=== PATIENT | male | born 1985 | race Caucasian/White ===

== ENCOUNTER 2018-05-09 19:57 | Inpatient (IN) | payer OTHER ==
[~2018-05-09] VITALS: Ht 170.2 cm; Wt 77.4 kg
[2018-05-10] VITALS (20 sets, daily range): BP systolic 98–161; BP diastolic 65–91; PULSE 54–86; RESP 12–24; Ht 170.2 cm; Wt 77.4 kg
[2018-05-10] MEDS ORDERED: ONDANSETRON 4 MG INJ IV STA (01:29)
[2018-05-10] MEDS ORDERED: SOD CHLORIDE 0.9% 1,000 ML IV ONE (01:30)
[2018-05-10] MEDS ORDERED: IOHEXOL 300MG/ML 150 ML BTL ONE (02:22)
[2018-05-10] MEDS ORDERED: SOD CHLORIDE 0.9% 100 ML ONE (02:22)
--- NOTE | 2018-05-10 03:36 | ERD ---
ER Documentation Chief Complaint Chief Complaint lower abdominal pain x 1 day HPI 32 year-old [male] coming in today with Chief Complaint: Abdominal pain History of Present Illness: Reporting waking up with mild abdominal pain that has has been progressive. Associated symptoms include nausea, decreased appetite, fatigue. Denies sick contacts. Review of systems: All systems were reviewed and are negative except for what is indicated in the history of present illness. Past Medical History: Hypothyroid Social History: [Patient denies tobacco, alcohol, elicit drug use] Medications: [Reviewed as documented Nursing Notes] Allergies: [Reviewed as documented in Nursing Notes] Social Concerns: Denies ROS All systems reviewed and are negative except as per history of present illness. Allergies Allergies: Coded Allergies: No Known Drug Allergies (Verified Allergy, Unknown, 05/09/18) PMhx/Soc History of Surgery: No Anesthesia Reaction: No Hx Neurological Disorder: No Hx Respiratory Disorders: No Hx Cardiac Disorders: No Hx Psychiatric Problems: No Hx Miscellaneous Medical Probl: Yes (HYPOTHYROIDSIM) Hx Alcohol Use: No Hx Substance Use: No Hx Tobacco Use: No Smoking Status: Never smoker FmHx Family History: No diabetes, No coronary disease Physical Exam Vitals Vital Signs Date Temp Pulse Resp B/P (MAP) Pulse Ox O2 O2 Flow FiO2 Time Delivery Rate 05/10/18 98.3 73 18 124/77 98 Room Air 04:29 (93) 05/09/18 98.3 79 18 143/73 98 20:00 (96) Physical Exam Const: No acute distress Head: Atraumatic Eyes: Normal Conjunctiva ENT: Normal External Ears, Nose and Mouth. Neck: Full range of motion. No meningismus. Resp: Clear to auscultation bilaterally Cardio: Regular rate and rhythm, no murmurs Abd: Soft, non distended. Normal bowel sounds. Tenderness to right lower quadrant. Skin: No petechiae or rashes Back: No midline or flank tenderness Ext: No cyanosis, or edema Neur: Awake and alert Psych: Normal Mood and Affect Result Diagram: 05/09/18225305/09/182253 Results 24 hrs Laboratory Tests Test 05/09/18 22:54 White Blood Count 8.6 10^3/ul Red Blood Count 5.35 10^6/ul Hemoglobin 17.1 g/dl Hematocrit 49.2 % Mean Corpuscular Volume 92.0 fl Mean Corpuscular Hemoglobin 32.0 pg Mean Corpuscular Hemoglobin Concent 34.8 g/dl Red Cell Distribution Width 11.8 % Platelet Count 209 10^3/UL Mean Platelet Volume 10.7 fl Immature Granulocytes % 0.500 % Neutrophils % 74.1 % Lymphocytes % 15.4 % Monocytes % 8.8 % Eosinophils % 0.8 % Basophils % 0.4 % Nucleated Red Blood Cells % 0.0 /100WBC Immature Granulocytes # 0.040 10^3/ul Neutrophils # 6.4 10^3/ul Lymphocytes # 1.3 10^3/ul Monocytes # 0.8 10^3/ul Eosinophils # 0.1 10^3/ul Basophils # 0.0 10^3/ul Nucleated Red Blood Cells # 0.0 10^3/ul Urine Color YELLOW Urine Clarity SLIGHTLY CLOUDY Urine pH 6.0 Urine Specific [place] 1.015 Urine Ketones NEGATIVE mg/dL Urine Nitrite NEGATIVE mg/dL Urine Bilirubin NEGATIVE mg/dL Urine Urobilinogen NEGATIVE mg/dL Urine Leukocyte Esterase NEGATIVE Lizy/ul Urine Microscopic RBC 1 /HPF Urine Microscopic WBC 1 /HPF Urine Amorphous Crystals FEW /HPF Urine Mucus FEW /HPF Urine Hemoglobin NEGATIVE mg/dL Urine Glucose NEGATIVE mg/dL Urine Total Protein NEGATIVE mg/dl Sodium Level 140 mmol/L Potassium Level 4.1 mmol/L Chloride Level 99 mmol/L Carbon Dioxide Level 29 mmol/L Anion Gap 12 Blood Urea Nitrogen 7 mg/dl Creatinine 0.85 mg/dl Est Glomerular Filtrat Rate mL/min > 60 mL/min Glucose Level 103 mg/dl Calcium Level 10.2 mg/dl Total Bilirubin 0.8 mg/dl Direct Bilirubin 0.00 mg/dl Indirect Bilirubin 0.8 mg/dl Aspartate Amino Transf (AST/SGOT) 29 IU/L Alanine Aminotransferase (ALT/SGPT) 42 IU/L Alkaline Phosphatase 89 IU/L Total Protein 8.5 g/dl Albumin 4.9 g/dl Globulin 3.60 g/dl Albumin/Globulin Ratio 1.36 Lipase 60 U/L Current Medications Medications Dose Sig/[place] Start Time Status Last (Trade) Ordered Route PRN Stop Time Admin Dose Reason Admin Sodium 1,000 ml @ Q1H ONCE 05/10/18 DC 05/10/18 Chloride 1,000 mls/hr IV 01:30 02:09 05/10/18 02:29 Ondansetron 4 mg ONCE STAT 05/10/18 DC 05/10/18 HCl (Zofran IV 01:29 02:09 Inj) 05/10/18 01:36 Sodium 100 ml @ ud STK-MED 05/10/18 DC 05/10/18 Chloride ONCE .ROUTE 02:22 02:43 05/10/18 02:23 Iohexol 150 ml STK-MED 05/10/18 DC 05/10/18 (Omnipaque ONCE .ROUTE 02:22 02:41 300mg/ ml) 05/10/18 02:23 Piperacillin 100 ml @ ONCE ONCE 05/10/18 05/10/18 Sod/ 200 mls/hr IVPB 04:30 04:22 Tazobactam 05/10/18 04:59 Sod Ondansetron 4 mg BRIDGE ORDER 05/10/18 HCl (Zofran PRN IV 04:30 Inj) NAUSEA/VOMITI 05/11/18 04:29 NG 650 mg ER BRIDGE 05/10/18 Acetaminophen PRN PO 04:30 (Tylenol .MILD PAIN 05/11/18 04:29 Tab) 1-3 OR TEMP Procedures/MDM ED course includes a thorough examination and history. ED course includes labs; CBC, CMP, lipase, urinalysis. Course includes ultrasound to rule out appendicitis. Patient reassessment at 0130: patient updated on ultrasound findings, not able to visualize appendix. CBC, CMP, lipase within normal limits. Will start fl uids on patient and order CT abdomen pelvis with contrast. Will give IV zofran for nausea. Otherwise healthy patient presenting with constellation of symptoms representing sinusitis as characterized by history, physical exam findings [radiologic/lab findings]. CT abdomen showing: IMPRESSION: Findings suggestive of early, mild acute appendicitis. There is no associated abscess or free air. Results were called to the ER physician construction project assistant Miguel A at time of dictation 0325 hours, will be related to the ordering clinician Louise Escobar. No evidence of intestinal obstruction. Consultation with the ED MD at 03:25: Dr. Estrada updated on physical exam, history, labs, CT results showing acute appendicitis. Plans of care for admission and Zosyn. Reassessment at 0330: nausea no longer present. Updated patient on CT results. Patient states he wants to call his to talk to regarding CT results and admission. ----- No respiratory distress, otherwise relatively well appearing and nontoxic. Patient educated on plan of care. Patient agrees to admission. Will start IV Zosyn. Departure Diagnosis: Primary Impression: Appendicitis, acute Acute appendicitis type: unspecified acute appendicitis type Qualified Codes: K35.80 - Unspecified acute appendicitis JES ESCOBAR NP May 10, 2018 03:36
--- NOTE | 2018-05-10 04:29 | QN ---
Documentation Comment Consultation note Subjective: This patient was evaluated by me in conjunction with PA. Please see the PA note for further detail. Briefly, this is a 32-year-old male who is presenting with right lower quadrant abdominal pain, nausea and vomiting times 1 day. Family history: As indicated on the initial history and physical of this ER visit Objective: Vital signs reviewed Const: No apparent distress, well-developed, well-nourished Head: Normocephalic, Atraumatic Eyes: Normal Conjunctiva. ENT: Normal External Ears, Nose and Mouth. Neck: No meningismus. Resp: Symmetric chest wall cedeno, no audible wheezes Cardio: Regular rate and rhythm. Abd: Right lower quadrant abdominal tenderness. No guarding or rebound. Normal bowel sounds. Skin: No petechiae or rashes Ext: No cyanosis, or edema Neur: Awake and alert, oriented 4. No facial droop. Normal strength and sensation. Psych: Normal mood and affect Assessment: Early appendicitis MDM The patient's presentation warrants further investigation. Previous medical records, if available, were reviewed. LABS The patient's laboratory testing was obtained and reviewed. No emergent treatment was required unless described below. CBC: No E/o of systemic infection or severe anemia or thrombocytopenia Chemistry: No E/o severe acidosis or alkalosis or renal failure or liver disease or diabetic ketoacidosis Urine: No E/o acute infection or hematuria IMAGING Imaging and Radiology interpretation reviewed. US Abd FINDINGS: The appendix is not visualized within the right lower abdomen. No abnormal fluid collections or a discrete encapsulated mass are visualized within the right or left lower abdomen. IMPRESSION: No discrete abnormality visualized within the right or left lower abdomen. Non-visualized appendix. A follow-up CT abdomen/pelvis may be obtained for additional evaluation if clinically indicated. Electronically viewed and signed by .April Armendariz MD, on 05/10/2018 00:15 CT Abd/Pelvis IMPRESSION: Findings suggestive of early, mild acute appendicitis. There is no associated abscess or free air. Results were called to the ER physician land surveyor assistant Miguel A at time of dictation 0325 hours, will be related to the ordering clinician Louise Melgar. No evidence of intestinal obstruction. 1.5 cm right renal probable cyst. No urinary tract stone or secondary signs of urinary tract obstruction, nor asymmetric renal parenchymal striation is seen. Electronically viewed and signed by Physician Guerda on 05/10/2018 03:26 TREATMENT/DISPOSITION The patient presents with symptoms concerning for early appendicitis. The patient was given Zosyn, IV fluids and Zofran in the emergency department. The patient does not have any evidence of peritonitis. The patient does not have clinical symptoms concerning for mesenteric ischemia or ischemic colitis. The patient does not have right upper quadrant tenderness, and I have low suspicion for gallstones, cholecystitis or biliary colic. The patient does not have any epigastric pain. I have low suspicion for gastritis, PUD or GERD. The patient does not have left upper quadrant tenderness. I have low suspicion for pancreatitis. The patient does not have suprapubic tenderness. I have decreased suspicion for cystitis. The patient does not have any left lower quadrant tenderness, and I have low suspicion for diverticulosis or diverticulitis. The patient does not have any flank tenderness. The patient does not have gross hematuria. I have decreased suspicion for nephrolithiasis or renal colic. The patient does not have any palpable pulsatile mass or severe abdominal pain radiating to the back. I have low suspicion for aortic aneurysm, dissection or rupture. At this time, I feel that the patient requires admission for further evaluation and management. The patient will be admitted to panel in accordance with the patient's insurance. The patient was accepted by Dr. Velasquez at 4:20 AM on May 10, 2017 to [facility]. The on-call general surgeon will be consulted on the case. Disclaimer: Inadvertent spelling and grammatical errors are likely due to EHR/dictation software use and do not reflect on the overall quality of patient care. Note that the electronic time recorded on this note does not necessarily reflect the actual time of the patient encounter. NOLBERTO GASTELUM MD May 10, 2018 04:29
[2018-05-10] MEDS ORDERED: ACETAMINOPHEN 325 MG TAB PO PRN ×3 (04:30→21:30)
[2018-05-10] MEDS ORDERED: ONDANSETRON 4 MG INJ IV PRN ×3 (04:30→20:00)
[2018-05-10] MEDS ORDERED: PIPER-TAZO 3.375 GM IV (PMX) 100 ML IVPB ONE (04:30)
--- NOTE | 2018-05-10 04:33 | HP ---
Date/Time of Note Date/Time of Note DATE: 05/10/18 TIME: 04:32 Assessment/Plan VTE Prophylaxis SCD applied (from Nsg): Yes Pharmacological prophylaxis: NA/contraindicated Pharm contraindication: low risk/ambulating Lines/Catheters IV Catheter Type (from Nrsg): Saline Lock Assessment/Plan Hospital Course This is a 32-year-old male being admitted to the [facility] floor for: #1 suspect early appendicitis: Patient does have positive right lower quadrant tenderness. CT scan shows possible early appendicitis. At the current time we will keep the patient n.p.o., Zosyn IV. Pain management. IV fluid hydration with normal saline. General surgery Dr. Newsome has been consulted by the ED. we will check PTT/PT/INR. Will await further recommendations. #2 hypothyroidism: Check a TSH level, will need to confirm patient's home levothyroxine dosage and resume. #3 DVT GI prophylaxis: SCDs, no GI prophylaxis indicated Further treatment strategy will be implemented as per the clinical course Result Diagram: 05/09/18225305/09/182253 Results 24hrs Laboratory Tests Test 05/09/18 22:54 White Blood Count 8.6 Red Blood Count 5.35 Hemoglobin 17.1 Hematocrit 49.2 Mean Corpuscular Volume 92.0 Mean Corpuscular Hemoglobin 32.0 Mean Corpuscular Hemoglobin Concent 34.8 Red Cell Distribution Width 11.8 Platelet Count 209 Mean Platelet Volume 10.7 H Immature Granulocytes % 0.500 H Neutrophils % 74.1 Lymphocytes % 15.4 Monocytes % 8.8 Eosinophils % 0.8 Basophils % 0.4 Nucleated Red Blood Cells % 0.0 Immature Granulocytes # 0.040 H Neutrophils # 6.4 Lymphocytes # 1.3 Monocytes # 0.8 Eosinophils # 0.1 Basophils # 0.0 Nucleated Red Blood Cells # 0.0 Urine Color YELLOW Urine Clarity SLIGHTLY CLOUDY A Urine pH 6.0 Urine Specific [place] 1.015 Urine Ketones NEGATIVE Urine Nitrite NEGATIVE Urine Bilirubin NEGATIVE Urine Urobilinogen NEGATIVE Urine Leukocyte Esterase NEGATIVE Urine Microscopic RBC 1 Urine Microscopic WBC 1 Urine Amorphous Crystals FEW A Urine Mucus FEW A Urine Hemoglobin NEGATIVE Urine Glucose NEGATIVE Urine Total Protein NEGATIVE Sodium Level 140 Potassium Level 4.1 Chloride Level 99 Carbon Dioxide Level 29 Anion Gap 12 Blood Urea Nitrogen 7 Creatinine 0.85 Est Glomerular Filtrat Rate mL/min > 60 Glucose Level 103 Calcium Level 10.2 Total Bilirubin 0.8 Direct Bilirubin 0.00 Indirect Bilirubin 0.8 Aspartate Amino Transf (AST/SGOT) 29 Alanine Aminotransferase (ALT/SGPT) 42 Alkaline Phosphatase 89 Total Protein 8.5 H Albumin 4.9 Globulin 3.60 H Albumin/Globulin Ratio 1.36 Lipase 60 HPI/ROS Admit Date/Time Admit Date/Time Hx of Present Illness Chief complaint: Abdominal pain starting yesterday This is a 32-year-old male with a past medical history of hypothyroidism who comes in today complaining of abdominal pain that started yesterday. Patient reports that he started experience some right lower quadrant abdominal pain. He also reports nausea. He denies any fevers. He reports a decreased appetite. Denies any chest pain or shortness of breath. Allergies: NKDA Medications: Levothyroxine ROS Const: As per HPI Eyes : No pain discharge or redness or change in visual acuity ENT: No pain, sore throat, congestion, congestion, dysphagia or discharge Respiratory: No shortness of breath, cough, sputum, wheezing, or pleuritic pain Cardiovascular: No chest pain, palpitation, PND, or edema GI : As per HPI Genitourinary: No dysuria, hematuria, flank pain , discharge or CVA tenderness Musculoskeletal: No joint pain, back pain, neck pain, restricted range of motion in neck or joints Skin: No rash, bruising or hives Neuro: No headache, dizziness, syncope, seizure, focal weakness Endocrine: No polyuria, polydipsia, temperature intolerance Psych: No hallucination, depression, anxiety or suicidal ideation PMH/Family/Social Past Medical History Hypothyroidism Medications Current Medications Piperacillin Sod/ Tazobactam Sod 100 ml @ 200 mls/hr ONCE ONCE IVPB Last administered on 05/10/18at 04:22; Admin Dose 200 MLS/HR; Start 05/10/18 at 04:30; Stop 05/10/18 at 04:59 Ondansetron HCl (Zofran Inj) 4 mg BRIDGE ORDER PRN IV NAUSEA/VOMITING; Start 05/10/18 at 04:30; Stop 05/11/18 at 04:29 Acetaminophen (Tylenol Tab) 650 mg ER BRIDGE PRN PO .MILD PAIN 1-3 OR TEMP; Start 05/10/18 at 04:30; Stop 05/11/18 at 04:29 Coded Allergies: No Known Drug Allergies (Verified Allergy, Unknown, 05/09/18) Past Surgical History Adams teeth removal Family History Significant Family History: no pertinent family hx Social History Alcohol Use: occasionally Smoking Status: Never smoker Drug Use: none Exam/Review of Systems Vital Signs Vitals Vital Signs Date Temp Pulse Resp B/P (MAP) Pulse Ox O2 O2 Flow FiO2 Time Delivery Rate 05/10/18 98.3 73 18 124/77 98 Room Air 04:29 (93) Exam Exam General: Patient is a pleasant male currently lying in bed in no acute distress HEENT: Atraumatic, normocephalic. The pupils are equal, round and reactive. Extraocular motor are intact Neck: Supple with full range of motion. No rigidity or meningismus Chest: Nontender Lungs: Clear to auscultation bilaterally no crackles rales or wheezing Heart: Normal S1-S2, Regular rhythm and rate. No murmur, S3, or S4 Abdomen: Soft , tenderness palpation over the right lower quadrant, positive McBurney's point tenderness, nondistended , bowel sounds are present. No guarding no rebound tenderness , No masses or organomegaly. No costovertebral temporal angle mass Extremities: Normal to inspection, no edema no cyanosis Neurologic: Normal mental status, speech normal, cranial nerves II through XII are intact, motor and sensory are intact, no focal weakness Additional Comments PROCEDURE: CT Abdomen and pelvis without and with contrast CLINICAL INDICATION: Right lower quadrant abdominal pain TECHNIQUE: Spiral CT images through the abdomen and pelvis without administration of oral and before and after administration of 100 cc of Omnipaque-300 contrast material. Multiplanar reconstructions were provided for the postcontrast images. The total exam CTDI equals 16.42 mGy and the total exam DLP equals 1025.59 mGy-cm. One or more of the following dose reduction techniques were used: automated exposure control, adjustment of the mA and/or kV according to patient size, or use of iterative reconstruction technique. DICOM images are available. COMPARISON: US 05/09/2018 FINDINGS: Lower thorax: Minimal dependent changes. Liver: The liver is unremarkable in appearance. Biliary: The gallbladder is unremarkable.. No biliary ductal dilatation is seen. Pancreas: Unremarkable. No focal mass or inflammatory process. Spleen: The spleen is unremarkable in appearance Adrenal glands: Unremarkable in appearance. No focal nodule.. Genitourinary: No hydronephrosis or renal calculi.. 1.5 cm O round low density lesion anteriorly in the right [id number] kidney is suggestive of a cyst. Symmetric renal enhancement without parenchymal striation. The bladder is unremarkable in appearance.. Gastrointestinal Tract: There is no evidence for bowel obstruction, or localizing bowel wall thickening seen. The appendix is mildly prominent throughout measuring approximately 8 mm in diameter. There is suggestion of subtle adjacent fat stranding in the right lower quadrant.. Lymph nodes: Scattered small nodes including in the right lower quadrant mesentery without adenopathy by CT size criteria. Peritoneal cavity: Trace free fluid dependently within the pelvis. There is no abscess or free air. Reproductive Organs: Unremarkable in appearance.. Vascular structures: The aorta and mesenteric vessels are unremarkable.. Musculoskeletal: Intact without acute or aggressive appearing osseous abnorma lity.. IMPRESSION: Findings suggestive of early, mild acute appendicitis. There is no associated abscess or free air. Results were called to the ER physician botany laboratory assistant Miguel A at time of dictation 0325 hours, will be related to the ordering clinician Louise Melgar. No evidence of intestinal obstruction. 1.5 cm right renal probable cyst.. No urinary tract stone or secondary signs of urinary tract obstruction, nor asymmetric renal parenchymal striation is seen. RPTAT: HSAF Physician Guerda Date Time Electronically viewed and signed by Physician Guerda on 05/10/2018 03:26 RF/ CC: JES MELGAR NP [id number] PROCEDURE: US Abdomen. CLINICAL INDICATION: Right lower quadrant abdominal pain TECHNIQUE: Multiple real-time longitudinal and transverse images were acquired of the patient's right and left lower abdomen using a linear array transducer. COMPARISON: None FINDINGS: The appendix is not visualized within the right lower abdomen. No abnormal fluid collections or a discrete encapsulated mass are visualized within the right or left lower abdomen. RPTAT: ZZ IMPRESSION: No discrete abnormality visualized within the right or left lower abdomen. Non- visualized appendix. A follow-up CT abdomen/pelvis may be obtained for additional evaluation if clinically indicated. .April Armendariz MD, MD Date Time Electronically viewed and signed by .April Armendariz MD, MD on 05/10/2018 00:15 .T/ CC: JES MELGAR NP [id number] EDER AVENDAÑO May 10, 2018 04:33
[2018-05-10] MEDS: SOD CHLORIDE 0.9% 1,000 ML IV SCH ×2 (05:26→14:22)
[2018-05-10] MEDS ORDERED: BISACODYL (EC) 5 MG TAB PO PRN (05:30)
[2018-05-10] MEDS ORDERED: morphine 2 MG INJ IV PRN (05:30)
[2018-05-10] MEDS ORDERED: DOCUSATE SODIUM 100 MG CAP PO PRN (05:30)
[2018-05-10] MEDS ORDERED: NACL 0.9% 3 ML SYG IV SCH (05:30)
[2018-05-10] MEDS ORDERED: LEVO50TA7 PO (05:42)
[2018-05-10] MEDS ORDERED: LIDOCAINE 2% (SDV) 5 ML INJ ONE (07:00)
[2018-05-10] MEDS ORDERED: DESFLURANE 15 MIN ONE (07:00)
[2018-05-10] MEDS ORDERED: ROCURONIUM 50 MG INJ ONE (07:00)
--- NOTE | 2018-05-10 10:25 | QN ---
Documentation Comment 32-year-old male with no significant past medical history admitted with sudden onset of periumbilical pain with radiation to right lower quadrant. Patient with stable white count, no fevers. No nausea, vomiting or diarrhea. Imaging showed possible early, mild acute appendicitis. Dr. Newsome, surgeon on- call was notified. We will start Zosyn every 6 [id number]. Continue n.p.o. status, IV fluids and follow-up surgeon's recommendation regarding f urther management. Case d/w DR.Abe DESAI,ARCHANA Miranda NP May 10, 2018 10:25
--- NOTE | 2018-05-10 11:53 | CONS ---
Assessment/Plan Assessment/Plan Assessment/Plan (Daily) Abdominal pain , suggestive of appendicitis , CT shows inflammatory changes surrounding the appendix PLAN Rec for laparoscopic appendectomy , detils of the procedure , risks benefits and alternatives reviewed with the patient . Post op expectations reviewed as well patient understands and wishes to proceed . OR has been contacted . Consultation Date/Type/Reason Admit Date/Time Date of Consultation: May 10, 2018 Type of Consult Surgical Consult Reason for Consultation abdominal pain , rule out appendicitis . Requesting Provider: EDER AVENDAÑO Date/Time of Note DATE: 05/10/18 TIME: 11:46 Hx of Present Illness Patient present with pain x 24 hours in mid abdomen , migrating to right lower quadrant since last night . No prior similar episodes . Past medical history significant for hypothyroidism , on Synthroid Past Surgical History [place] Teeth extraction Endocrine: no complaints, polyuria, polydypsia, dry skin, temp intolerance, other (hypothyroidism ) Past Medical History Home Meds Reported Medications Levothyroxine Sodium* (Levothyroxine Sodium*) 50 Mcg Tablet, 50 MCG PO DAILY 05/10/18 Medications Current Medications Sodium Chloride 1,000 ml @ 100 mls/hr Q10H IV Last administered on 05/10/18at 05:26; Admin Dose 100 MLS/HR; Start 05/10/18 at 05:01 IV Flush (NS 3 ml) 3 ml PER PROTOCOL IV ; Start 05/10/18 at 05:30 Ondansetron HCl (Zofran Inj) 4 mg Q6H PRN IV NAUSEA/VOMITING; Start 05/10/18 at 05:30 Acetaminophen (Tylenol Tab) 650 mg Q6H PRN PO .PAIN 1-3 OR TEMP; Start 05/10/18 at 05:30 Morphine Sulfate (morphine) 2 mg Q4H PRN IV .SEVERE PAIN 7-10; Start 05/10/18 at 05:30 Docusate Sodium (Colace) 100 mg Q12H PRN PO .CONSTIPATION; Start 05/10/18 at 05:30 Bisacodyl (Dulcolax) 5 mg DAILY PRN PO .CONSTIPATION; Start 05/10/18 at 05:30 Piperacillin Sod/ Tazobactam Sod 100 ml @ 200 mls/hr Q6 IVPB ; Start 05/10/18 at 12:00 Allergies: Coded Allergies: No Known Drug Allergies (Verified Allergy, Unknown, 05/09/18) Social History Alcohol Use: occasionally Smoking Status: Never smoker Drug Use: none Exam/Review of Systems Exam Vitals Vital Signs Date Temp Pulse Resp B/P (MAP) Pulse Ox O2 O2 Flow FiO2 Time Delivery Rate 05/10/18 98.2 66 20 111/75 98 08:05 (87) 05/10/18 Room Air 05:30 Exam A&O x 3 , no acute distress , complains of discomfort right lower quadrant Results Result Diagram: 05/09/184 05/09/18 2254 Results 24hrs Laboratory Tests Test 05/09/18 22:54 05/10/18 05:35 White Blood Count 8.6 Red Blood Count 5.35 Hemoglobin 17.1 Hematocrit 49.2 Mean Corpuscular Volume 92.0 Mean Corpuscular Hemoglobin 32.0 Mean Corpuscular Hemoglobin Concent 34.8 Red Cell Distribution Width 11.8 Platelet Count 209 Mean Platelet Volume 10.7 H Immature Granulocytes % 0.500 H Neutrophils % 74.1 Lymphocytes % 15.4 Monocytes % 8.8 Eosinophils % 0.8 Basophils % 0.4 Nucleated Red Blood Cells % 0.0 Immature Granulocytes # 0.040 H Neutrophils # 6.4 Lymphocytes # 1.3 Monocytes # 0.8 Eosinophils # 0.1 Basophils # 0.0 Nucleated Red Blood Cells # 0.0 Urine Color YELLOW Urine Clarity SLIGHTLY CLOUDY A Urine pH 6.0 Urine Specific [place] 1.015 Urine Ketones NEGATIVE Urine Nitrite NEGATIVE Urine Bilirubin NEGATIVE Urine Urobilinogen NEGATIVE Urine Leukocyte Esterase NEGATIVE Urine Microscopic RBC 1 Urine Microscopic WBC 1 Urine Amorphous Crystals FEW A Urine Mucus FEW A Urine Hemoglobin NEGATIVE Urine Glucose NEGATIVE Urine Total Protein NEGATIVE Sodium Level 140 Potassium Level 4.1 Chloride Level 99 Carbon Dioxide Level 29 Anion Gap 12 Blood Urea Nitrogen 7 Creatinine 0.85 Est Glomerular Filtrat Rate mL/min > 60 Glucose Level 103 Calcium Level 10.2 Total Bilirubin 0.8 Direct Bilirubin 0.00 Indirect Bilirubin 0.8 Aspartate Amino Transf (AST/SGOT) 29 Alanine Aminotransferase (ALT/SGPT) 42 Alkaline Phosphatase 89 Total Protein 8.5 H Albumin 4.9 Globulin 3.60 H Albumin/Globulin Ratio 1.36 Lipase 60 Prothrombin Time 12.6 Prothrombin Time Ratio 1.0 INR International Normalized Ratio 0.93 Activated Partial Thromboplast Time 29.2 Thyroid Stimulating Hormone (TSH) 2.250 Medications Medication Current Medications Sodium Chloride 1,000 ml @ 100 mls/hr Q10H IV Last administered on 05/10/18at 05:26; Admin Dose 100 MLS/HR; Start 05/10/18 at 05:01 IV Flush (NS 3 ml) 3 ml PER PROTOCOL IV ; Start 05/10/18 at 05:30 Ondansetron HCl (Zofran Inj) 4 mg Q6H PRN IV NAUSEA/VOMITING; Start 05/10/18 at 05:30 Acetaminophen (Tylenol Tab) 650 mg Q6H PRN PO .PAIN 1-3 OR TEMP; Start 05/10/18 at 05:30 Morphine Sulfate (morphine) 2 mg Q4H PRN IV .SEVERE PAIN 7-10; Start 05/10/18 at 05:30 Docusate Sodium (Colace) 100 mg Q12H PRN PO .CONSTIPATION; Start 05/10/18 at 05:30 Bisacodyl (Dulcolax) 5 mg DAILY PRN PO .CONSTIPATION; Start 05/10/18 at 05:30 Piperacillin Sod/ Tazobactam Sod 100 ml @ 200 mls/hr Q6 IVPB ; Start 05/10/18 at 12:00 MENDOZA SCHULZ MD May 10, 2018 11:53
[2018-05-10] MEDS: PIPER-TAZO 3.375 GM IV (PMX) 100 ML IVPB SCH ×2 (14:22→17:45)
[2018-05-10] MEDS ORDERED: BUPIVACAINE 0.5%/EPI (SDV) 30 ML INJ ONE (15:54)
--- NOTE | 2018-05-10 19:52 | PREAC ---
Date/Time of Note Date/Time of Note DATE: 05/10/18 TIME: 19:51 Anesthesia Eval and Record Evaluation Time Pre-Procedure Interview DATE: 05/10/18 TIME: 19:51 Age 32 Sex male NPO: 8 hrs Preoperative diagnosis appendicitis Planned procedure lap appy Past Medical History Past Medical History: Includes Endo: Hypothyroid Surgery & Anesthesia Issues No known issue Meds Anticoagulation: No Beta Ric within 24 hr: No Reason Beta Ric not given: Pt. not on B-Ric Reported Medications Levothyroxine Sodium* (Levothyroxine Sodium*) 50 Mcg Tablet, 50 MCG PO DAILY 05/10/18 Current Medications Sodium Chloride 1,000 ml @ 100 mls/hr Q10H IV Last administered on 05/10/18at 14:22; Admin Dose 100 MLS/HR; Start 05/10/18 at 05:01 IV Flush (NS 3 ml) 3 ml PER PROTOCOL IV ; Start 05/10/18 at 05:30 Ondansetron HCl (Zofran Inj) 4 mg Q6H PRN IV NAUSEA/VOMITING; Start 05/10/18 at 05:30 Acetaminophen (Tylenol Tab) 650 mg Q6H PRN PO .PAIN 1-3 OR TEMP; Start 05/10/18 at 05:30 Morphine Sulfate (morphine) 2 mg Q4H PRN IV .SEVERE PAIN 7-10; Start 05/10/18 at 05:30 Docusate Sodium (Colace) 100 mg Q12H PRN PO .CONSTIPATION; Start 05/10/18 at 05:30 Bisacodyl (Dulcolax) 5 mg DAILY PRN PO .CONSTIPATION; Start 05/10/18 at 05:30 Piperacillin Sod/ Tazobactam Sod 100 ml @ 200 mls/hr Q6 IVPB Last administered on 05/10/18at 14:22; Admin Dose 200 MLS/HR; Start 05/10/18 at 12:00 Meds reviewed: Yes Allergies Coded Allergies: No Known Drug Allergies (Verified Allergy, Unknown, 05/09/18) Allergies Reviewed: Yes Labs/Studies Labs Reviewed: Reviewed by anesthesiologist Result Diagram: 05/09/18225305/09/182253 Laboratory Tests 05/09/18 22:54 test: N/A Pre-procedure Exam Last vitals Vital Signs Date Temp Pulse Resp B/P (MAP) Pulse Ox O2 O2 Flow FiO2 Time Delivery Rate 05/10/18 99.0 63 20 122/70 98 16:13 (87) 05/10/18 Room Air 05:30 Airway: Adequate mouth opening, Adequate thyromental dist Mallampati: Mallampati I Teeth: Normal Lung: Normal Heart: Normal ASA Physical Status ASA physical status: 2 Emergency: None Pre-operative Attestations Prior to commencing anesthesia and surgery, the patient was re-evaluated, there was verification of: *The patient's identity *The results of appropriate recent lab work and preoperative vital signs *The above evaluation not changing prior to induction *Anesthetic plan, risk benefits, alternative and complications discussed with patient/family; questions answered; patient/family understands, accepts and wishes to proceed. SAMIR ODEN DO May 10, 2018 19:52
[2018-05-10] MEDS ORDERED: HYDROmorphONE 1 MG/5 ML IV SYRINGE IV PRN (20:00)
[2018-05-10] MEDS ORDERED: SUCCINYLCHOLINE CHLORIDE 100 MG/5 ML SYG IV ONE (20:04)
[2018-05-10] MEDS ORDERED: PROPOFOL 20 ML ONE (20:04)
[2018-05-10] MEDS ORDERED: MIDAZOLAM 1 MG/ML 2 ML INJ ONE (20:04)
[2018-05-10] MEDS ORDERED: ONDANSETRON 4 MG INJ ONE (20:27)
[2018-05-10] MEDS ORDERED: CEFAZOLIN 1 GM INJ ONE (20:27)
[2018-05-10] MEDS ORDERED: ROPIVACAINE 0.5 % 30 ML VIAL ONE (20:27)
[2018-05-10] MEDS ORDERED: NEOSTIGMINE 10 MG INJ ONE (21:03)
[2018-05-10] MEDS ORDERED: GLYCOPYRROLATE 0.4 MG INJ ONE (21:03)
--- NOTE | 2018-05-10 21:08 | OPR ---
Date/Time of Note Date/Time of Note DATE: 05/10/18 TIME: 21:02 Operative Report Free Text/Dictation Operative report Procedure Date: May 10, 2018 Preoperative Diagnosis Acute appendicitis Postoperative Diagnosis Same Operation/Procedure Performed Laparoscopic appendectomy Surgeon see signature line Mendoza Newsome MD Retirement Manager None Anesthesia Type: general Anesthesiologist: CHRISTIANO POOLE MD Estimated Blood Loss: minimal Transfusion none Specimen Appendix Grafts/Implants none Complications None Pt Condition Post Procedure: stable Disposition: PACU Indications Patient presented to the emergency room with acute onset of lower abdominal right lower quadrant pain. Evaluation including imaging studies physical exam and labs were consistent with acute appendicitis. Surgical consultation was requested. My assessment was the patient had appendicitis and I advised her for laparoscopy laparoscopic appendectomy possibility of open risk benefits alternatives and details of procedure were discussed and reviewed patient agreed to proceed consent was signed and he was brought urgently to the operating room Procedure Description Patient was brought to the operating room placed in supine position general anesthesia administered with endotracheal intubation patient was prepped and draped in standard sterile fashion timeout was completed orogastric tube was inserted by anesthesia varies needle was inserted at Us's point insufflation delivered to maintain. Pneumoperitoneum at 15 mmHg throughout the procedure. Small stab incision made just above the umbilicus and a 5 mm trocar was inserted under direct visualization with 30 degree 5 mm laparoscope. General inspection showed no bleeding the varies needle was identified and removed under direct visualization 2 additional trochars, 5 mm infraumbilical and a 12 mm suprapubic trocar were inserted next. Patient was placed in Trendelenburg and right side up position the right lower quadrant was inspected the appendix was identified it was elevated there was thickening consistent with acute appendicitis. Cautery was used to lyse adhesions and retroperitoneal attachments to the appendix were divided. A window was made in the mesoappendix at the base of the appendix and an [place] 35 mm vascular cartridge was used to divide the appendix at the base and a second application of the mesoappendix the appendix placed in a specimen bag and brought through the 12 mm port. The staple line was inspected small bleeding was controlled with monopolar cautery. Final inspection showed no additional bleeding or abnormalities the pneumoperitoneum was allowed to escape the insufflation was halted the trochars were removed the fascia incision of the 12 mm port was closed with an 0 Vicryl suture skin incision closed with 4-0 Monocryl. Dermabond was applied to skin incisions. Patient tolerated suture well was explained the operative brought recovery in stable condition. Should be noted that anesthesia performed a tap block at the beginning of the procedure. Instrument sponge needle count correct x2 MENDOZA NEWSOME MD May 10, 2018 21:08
--- NOTE | 2018-05-10 21:25 | PAC ---
Date/Time of Note Date/Time of Note DATE: 05/10/18 TIME: 21:25 Post-Anesthesia Notes Post-Anesthesia Note Last documented vital signs Vital Signs Date Temp Pulse Resp B/P (MAP) Pulse Ox O2 O2 Flow FiO2 Time Delivery Rate 05/10/18 99.2 85 20 135/69 100 2125 05/10/18 63 20 122/70 98 16:13 (87) 05/10/18 Room Air 05:30 Activity: WNL Respiratory function: WNL Cardiovascular function: WNL Mental status: Baseline Pain reasonably controlled: Yes Hydration appropriate: Yes Nausea/Vomiting absent: Yes SAMIR ODEN DO May 10, 2018 21:25
[2018-05-10] MEDS ORDERED: HYDROCODONE/APAP (5/325) TAB PO PRN (21:30)
[2018-05-10] MEDS ORDERED: HYDROmorphONE 0.5 MG/0.5 ML SYG IV PRN (21:30)
[2018-05-10] MEDS: KETOROLAC 30 MG INJ IV PRN (21:46)
[2018-05-10] MEDS: HYDROmorphONE 1 MG/5 ML IV SYRINGE IV PRN ×2 (21:46→21:55)
[2018-05-10] MEDS: D5W-0.45 NACL + KCL 20 MEQ 1,000 ML IV SCH (23:07)
[2018-05-11] MEDS: PIPER-TAZO 3.375 GM IV (PMX) 100 ML IVPB SCH ×3 (00:38→12:25)
[2018-05-11 02:36] VITALS: BP 109/70; PULSE 73; RESP 18
[2018-05-11] MEDS: D5W-0.45 NACL + KCL 20 MEQ 1,000 ML IV SCH ×2 (06:36→10:24)
[2018-05-11] MEDS ORDERED: ENOXAPARIN 40 MG/0.4 ML SYG SC SCH (07:00)
[2018-05-11 07:40] VITALS: BP 130/77; PULSE 69; RESP 20
[2018-05-11] MEDS: KETOROLAC 30 MG INJ IV PRN (09:11)
[2018-05-11] MEDS ORDERED: DOCU-144 PO (13:03)
[2018-05-11] MEDS ORDERED: HYDR-4011 PO (13:03)
--- NOTE | 2018-05-11 13:03 | PDOCDIS ---
Discharge Instructions CONDITION [id number] Patient Condition: [id number] Stable HOME CARE INSTRUCTIONS: [id number] Diet Instructions: [id number] Regular FOLLOW UP/APPOINTMENTS Follow-up Plan . Follow-up with Dr. Newsome in 1 week in his clinic. [address] [facility] [place] [address] Office Follow-up with primary care physician in 1 week Post operative Instructions *Do not lift anything more than 25 pounds for 6 to 8 weeks *Do not swim or take hot tub bath for 2weeks *Remove dressing and May shower-Use mild soap around site and pat dry *If you notice any oozing, bleeding or other drainage or having fever or chills from site please contact Surgeon's office-If unable to get office, you may go to nearest emergency room ARCHANA DESAI NP May 11, 2018 13:03
--- NOTE | 2018-05-11 13:06 | DS ---
Date/Time of Note Date/Time of Note DATE: 05/11/18 TIME: 13:05 Discharge Summary Admission/Discharge Info Admit Date/Time May 10, 2018 at 04:22 Discharge Date/Time Discharge Diagnosis 1. Acute appendicitis. Status post laparoscopic appendectomy 2. Hypothyroidism Patient Condition: Stable Consults Dr. Newsome, surgery Procedures 05/10/2018. CT abdomen and pelvis. iMPRESSION: Findings suggestive of early, mild acute appendicitis. There is no associated abscess or free air. Results were called to the ER physician certified dental assistant Miguel A at time of dictation 0325 hours, will be related to the ordering clinician Louise Melgar. No evidence of intestinal obstruction. 1.5 cm right renal probable cyst.. No urinary tract stone or secondary signs of urinary tract obstruction, nor asymmetric renal parenchymal striation is seen. 05/10/2018. Operation performed: Laparoscopic appendectomy Hospital Course 32-year-old male with a history of hypothyroidism, otherwise healthy, admitted with acute appendicitis. Patient underwent laparoscopic appendectomy on 05/10/2018. There was no evidence of perforation, peritonitis. There was no leukocytosis, fever. Postoperatively patient did well. He was able to tolerate diet and activities well. At this time, patient is medically stable from surgery standpoint for discharge with outpatient follow-up. Approximately 60 m spent on coordinating the discharge on this patient. Patient was seen in collaboration with [facility] Reported Medications Levothyroxine Sodium* (Levothyroxine Sodium*) 50 Mcg Tablet, 50 MCG PO DAILY 05/10/18 Follow-up Plan . Follow-up with Dr. Newsome in 1 week in his clinic. [address] [place] [address] Office Follow-up with primary care physician in 1 week Post operative Instructions *Do not lift anything more than 25 pounds for 6 to 8 weeks *Do not swim or take hot tub bath for 2weeks *Remove dressing and May shower-Use mild soap around site and pat dry *If you notice any oozing, bleeding or other drainage or having fever or chills from site please contact Surgeon's office-If unable to get office, you may go to nearest emergency room Primary Care Provider Not On Staff Doctor Pending Labs Laboratory Tests Test 05/11/18 04:58 White Blood Count 6.9 10^3/ul (4.8-10.8) Red Blood Count 4.43 10^6/ul (4.70-6.10) Hemoglobin 14.1 g/dl (14.0-18.0) Hematocrit 41.2 % (42.0-52.0) Mean Corpuscular Volume 93.0 fl (82.0-101.0) Mean Corpuscular Hemoglobin 31.8 pg (29.0-33.0) Mean Corpuscular Hemoglobin Concent 34.2 g/dl (32.0-37.0) Red Cell Distribution Width 11.5 % (11.5-14.5) Platelet Count 170 10^3/UL (140-415) Mean Platelet Volume 12.0 fl (7.4-10.4) Immature Granulocytes % 0.700 % (0.001-0.429) Neutrophils % 62.3 % (39.0-77.0) Segmented Neutrophils % (Manual) 66 % (39-77) Band Neutrophils % (Manual) 3 % (0-4) Lymphocytes % 23.6 % (15.0-51.0) Lymphocytes % (Manual) 16 % (15-51) Monocytes % 11.4 % (0.0-11.0) Monocytes % (Manual) 11 % (0-11) Eosinophils % 1.6 % (0.0-7.0) Eosinophils % (Manual) 4 % (0-7) Basophils % 0.4 % (0.0-2.0) Nucleated Red Blood Cells % 0.0 /100WBC (0.0-0.0) Immature Granulocytes # 0.050 10^3/ul (0.0-0.031) Neutrophils # 4.3 10^3/ul (1.6-7.5) Neutrophils # (Manual) 4.6 10^3/ul (1.6-7.5) Band Neutrophils # 0.2 10^3/ul (0.0-0.6) Lymphocytes (Manual) 1.1 10^3/ul (0.8-2.9) Lymphocytes # 1.6 10^3/ul (0.8-2.9) Monocytes # 0.8 10^3/ul (0.3-0.9) Monocytes # (Manual) 0.7 10^3/ul (0.3-0.9) Eosinophils # 0.1 10^3/ul (0.0-0.5) Basophils # 0.0 10^3/ul (0.0-0.1) Nucleated Red Blood Cells # 0.0 10^3/ul (0.0-0.0) Platelet Estimate NORMAL Giant Platelets 1 % (0-0) Polychromasia 1+ (0-0) Anisocytosis 2+ (0-0) Microcytosis 1+ (0-0) Sodium Level 139 mmol/L (135-144) Potassium Level 4.1 mmol/L (3.5-5.1) Chloride Level 103 mmol/L (97-110) Carbon Dioxide Level 30 mmol/L (21-31) Anion Gap 6 (5-13) Blood Urea Nitrogen 8 mg/dl (7-20) Creatinine 0.85 mg/dl (0.61-1.24) Est Glomerular Filtrat Rate mL/min > 60 mL/min (>60) Glucose Level 93 mg/dl (70-220) Calcium Level 8.7 mg/dl (8.4-10.2) Total Bilirubin 0.7 mg/dl (0.2-1.3) Direct Bilirubin 0.00 mg/dl (0.00-0.20) Indirect Bilirubin 0.7 mg/dl (0-1.1) Aspartate Amino Transf (AST/SGOT) 21 IU/L (15-46) Alanine Aminotransferase (ALT/SGPT) 36 IU/L (13-69) Alkaline Phosphatase 60 IU/L (42-121) Total Protein 6.1 g/dl (6.1-8.1) Albumin 3.4 g/dl (3.3-4.9) Globulin 2.70 g/dl (1.3-3.2) Albumin/Globulin Ratio 1.25 ARCHANA DESAI NP May 11, 2018 13:06
[2018-05-11 13:22] VITALS: BP 109/72; PULSE 65; RESP 20
== END 2018-05-11 16:30 | disposition home or self-care (01) | DRG 343 ==
LOC: EDBD 19:57 → FTE 19:57 → 2NE 05-10 04:22
PROVIDERS: ADMIT Family Medicine; ATTEND Family Medicine
PROC: 0DTJ4ZZ Resection of Appendix, Percutaneous Endoscopic Approach (ICD-10-PCS; principal; 2018-05-10 18:00)
DX: K37 Unspecified appendicitis (principal); E03.9 Hypothyroidism, unspecified
CPT/HCPCS: 36415; 74178; 76700; 80053; 81001; 81003; 83690; 84443; 85025; 85610; 85730; 88304; 96374; 96375; J0690; J1170; J1650; J1885; J2250; J2405; J2543; J2710; J2795; J3010; J3480; J7030; Q9967